=== PATIENT | female | born 1980 | race Caucasian/White ===

== ENCOUNTER 2022-06-11 16:45 | Emergency (ER) | payer OTHER ==
[~2022-06-11] VITALS: Ht 175.2 cm; Wt 79.8 kg
[2022-06-11 18:41] LABS: BASO % 0.4 % (0.0-1.0); EOS # 0.3 10*3/uL (0.0-0.4); EOS % 2.7 % (1.0-4.0); HEMATOCRIT 35.3 % (37.0-47.0); LYMPH # 3.2 10*3/uL (1.3-4.4); LYMPH % 30.9 % (27.0-41.0); MEAN CELL VOLUME 86.1 fl (81.0-99.0); MEAN CORPUSCULAR HGB 27.3 pg (27.0-31.0); MEAN CORPUSCULAR HGB CONC 31.7 g/dl (33.0-37.0); MEAN PLATELET VOLUME 9.2 fl (9.6-12.3); MONO # 0.9 10*3/uL (0.1-1.0); MONO % 8.6 % (3.0-9.0); NEUT # 5.9 10*3/uL (2.3-7.9); NEUT % 57.2 % (47.0-73.0); PLATELET COUNT AUTOMATED 333 10*3/uL (130-400); RED CELL DISTRI WIDTH 14.3 % (0-14.5); WHITE BLOOD COUNT 10.3 10*3/uL (4.8-10.8)
[2022-06-11 18:52] LABS: INTERNATIONAL NORM RATIO 0.9 (2.0-3.5)
[2022-06-11 18:56] LABS: ALKALINE PHOSPHATASE 56 U/L (46-116); BUN 11 mg/dl (9-23); CHLORIDE 108 mmol/L (98-107); CREATININE 0.83 mg/dL (0.55-1.02); POTASSIUM 3.9 mmol/L (3.4-5.1); SGPT/ALT 9 U/L (10-49); SODIUM 140 mmol/L (136-145); TOTAL PROTEIN 6.6 gm/dL (6.0-8.0)
== END 2022-06-12 01:34 | disposition home or self-care (01) ==
LOC: ED 16:45
PROVIDERS: Physician Assistant
DX: I73.00 Raynaud's syndrome without gangrene (principal)

== ENCOUNTER → 2022-08-21 | Outpatient (CLI) | payer OTHER | END | disposition home or self-care (01) | LOC: US 07:30 | PROVIDERS: ATTEND Internal Medicine | DX: N83.201 Unspecified ovarian cyst, right side (principal); R10.10 Upper abdominal pain, unspecified ==

== ENCOUNTER 2024-02-11 12:46 | Emergency (ER) | payer OTHER ==
[~2024-02-11] VITALS: Ht 175.2 cm; Wt 79.8 kg
[2024-02-11 13:07] LABS: BASO % 0.5 % (0.0-1.0); EOS # 0.3 10*3/uL (0.0-0.4); EOS % 3.2 % (1.0-4.0); HEMATOCRIT 35.6 % (37.0-47.0); LYMPH # 2.7 10*3/uL (1.3-4.4); LYMPH % 34.4 % (27.0-41.0); MEAN CELL VOLUME 85.4 fl (81.0-99.0); MEAN CORPUSCULAR HGB 27.6 pg (27.0-31.0); MEAN CORPUSCULAR HGB CONC 32.3 g/dl (33.0-37.0); MEAN PLATELET VOLUME 9.5 fl (9.6-12.3); MONO # 0.4 10*3/uL (0.1-1.0); MONO % 5.1 % (3.0-9.0); NEUT # 4.4 10*3/uL (2.3-7.9); NEUT % 56.7 % (47.0-73.0); PLATELET COUNT AUTOMATED 305 10*3/uL (130-400); RED BLOOD COUNT 4.17 10*6/uL (4.10-5.10); RED CELL DISTRI WIDTH 14.3 % (0-14.5); WHITE BLOOD COUNT 7.8 10*3/uL (4.8-10.8)
[2024-02-11 13:25] LABS: ACT PARTIAL THROMBO TIME 27.4 SECONDS (20.0-32.1); ALKALINE PHOSPHATASE 64 U/L (46-116); BUN 6 mg/dl (9-23); CHLORIDE 109 mmol/L (98-107); POTASSIUM 2.8 mmol/L (3.4-5.1); TOTAL PROTEIN 6.5 gm/dL (6.0-8.0)
[2024-02-11 13:27] LABS: SGPT/ALT < 7 U/L (5-49)
[2024-02-11] MEDS ORDERED: ACETAMINOPHEN 325 MG TAB PO ONE (13:35)
[2024-02-11] MEDS ORDERED: IBUPROFEN 400 MG TAB PO ONE (13:35)
[2024-02-11] MEDS ORDERED: LIDOCAINE 1 EA PATCH T ONE (13:35)
[2024-02-11] MEDS ORDERED: POTASSIUM CHLORIDE 20 MEQ TAB PO ONE (13:55)
[2024-02-11] MEDS ORDERED: MAGNESIUM OXIDE 400 MG TAB PO ONE (13:55)
[2024-02-11] MEDS ORDERED: Motrin,Rufen400 MG PO (14:50)
[2024-02-11] MEDS ORDERED: ASPERCREME LID1 EACH T (14:50)
[2024-02-11] MEDS ORDERED: POTASSIUM CHLO20 ME3 PO (14:50)
[2024-02-11] MEDS ORDERED: TYLENOL EXTRA500 MG PO (14:50)
== END 2024-02-11 14:56 | disposition home or self-care (01) ==
LOC: ED 12:46
PROVIDERS: Emergency Medicine
DX: R07.89 Other chest pain (principal); E87.6 Hypokalemia; F31.9 Bipolar disorder, unspecified